=== PATIENT | female | born 1960 | race African-American/Black ===

== ENCOUNTER 2018-01-05 05:48 | Day surgery (SDC) | payer OTHER ==
--- NOTE | 2018-01-04 02:29 | HP ---
SHORT STAY HISTORY AND PHYSICAL DATE OF ADMISSION: 01/05/2018 HISTORY OF PRESENT ILLNESS: Freddy Noel is a 57-year-old female referred here for a colonoscopy f or colon cancer screening. The patient also had fecal immunochemical testing that came back positive . Her bowel movements are regular. No rectal bleeding. Of note, she has no family history of colon cancer. ALLERGIES: CELEBREX. SOCIAL HISTORY: The patient does not smoke or drink alcohol. MEDICAL ILLNESSES: 1. Hypertension. 2. Hypothyroidism. 3. Hyperlipidemia. 4. Obesity. 5. Appendectomy. 6. Tubal ligation. PHYSICAL EXAMINATION: VITAL SIGNS: Pulse is 70, blood pressure 130/70. HEENT: Conjunctivae clear. CARDIOVASCULAR: First and second heart sounds normal. LUNGS: Clear to auscultation. ABDOMEN: Soft to palpate. No organomegaly. No tenderness. No masses. ADMITTING DIAGNOSIS: A 57-year-old female with positive fecal test comes in for a colonoscopy for co alvino cancer screening.
[2018-01-04 13:08] VITALS: BMI 33.7
--- NOTE | 2018-01-05 09:36 | OP ---
DATE OF PROCEDURE: 01/05/2018 SURGEON: Reyna Salazar M.D. OPERATIVE PROCEDURE: Colonoscopy with polypectomy. PREOPERATIVE DIAGNOSIS: A 57-year-old female undergoing colonoscopy for colon cance r screening. POSTOPERATIVE DIAGNOSES: 1. Sessile ascending colon polyp, status post snare cautery with good hemostasis. 2. Large pedunculated polyp sigmoid colon, status post snare cautery with good hemostasis. 3. Hemorrhoids. PROCEDURE IN DETAIL: The patient was placed on her left lateral position and was given sedation by [facility]. A rectal exam was done before the scope was advanced into the rectum. No lesi on felt on rectal exam. A [employer]ax video colonoscope was introduced into the rectum, into the cecum. The prep was good. The mucosa appears normal throughout the colon with normal vascular pattern. The appendiceal orifice and ileocecal valve, cecum, no pathology seen. A sessile ascending colon polyp was removed with snare cautery with good hemostasis. The hepatic flexure, transverse colon, splenic flexure, and descending colon, no pathology. A large pedunculated polyp sigmoid colon area removed w ith cautery with good hemostasis. Retroflexion of scope in the rectum revealed hemorrhoids. DISCHARGE PLANNING: This is a 57-year-old female who came in for colonoscopy for co alvino cancer screening. She underwent a colonoscopy with polypectomy x2. DISCHARGE RECOMMENDATIONS: 1. The patient was advised to call me if she develops abdominal pain or hematochezia. 2. In the absence of any of her symptoms she is to come back to me in 2 weeks. 3. Will make recommendations for follow up colonoscopy after the biopsy report returns.
[2018-01-05] MEDS ORDERED: Lidocaine 1% PF 5 ML VIAL ONE (14:38)
[2018-01-05] MEDS ORDERED: PROPOFOL 200 MG/20 ML VIAL ONE (14:38)
== END 2018-01-05 09:34 | disposition home or self-care (01) ==
LOC: SDC 05:48
PROVIDERS: ATTEND Internal Medicine Gastroenterology
PROC: 0D5N8ZZ Destruction of Sigmoid Colon, Via Natural or Artificial Opening Endoscopic (ICD-10-PCS; principal; 2018-01-05)
PROC: 0DBK8ZX Excision of Ascending Colon, Via Natural or Artificial Opening Endoscopic, Diagnostic (ICD-10-PCS; principal; 2018-01-05)
DX: D12.2 Benign neoplasm of ascending colon (principal); D12.5 Benign neoplasm of sigmoid colon; K64.9 Unspecified hemorrhoids; I10 Essential (primary) hypertension; E03.9 Hypothyroidism, unspecified; E78.5 Hyperlipidemia, unspecified; E66.9 Obesity, unspecified; Z68.33 Body mass index [BMI] 33.0-33.9, adult; Z79.899 Other long term (current) drug therapy; Z91.048 Other nonmedicinal substance allergy status
CPT/HCPCS: 88305; J2001; J2704

== ENCOUNTER 2021-02-20 07:22 | Outpatient (CLI) | payer OTHER | END 2021-02-20 07:23 | disposition home or self-care (01) | LOC: BICULT 07:22 | PROVIDERS: ATTEND Nurse Practitioner Family | DX: N93.8 Other specified abnormal uterine and vaginal bleeding (principal); D25.9 Leiomyoma of uterus, unspecified | CPT/HCPCS: 76856; 93976 ==

== ENCOUNTER 2021-08-21 14:41 | Inpatient (IN) | payer OTHER ==
[~2021-08-21 14:41] MED LIST: ISOVUE-370 76%-LOCM 1 ML ONE
[2021-08-21 15:28] LABS: #Basophils 0.1 thou/uL (0.0-0.2); #Lymphocytes 2.5 thou/uL (1.20-3.40); #Monocytes 0.8 thou/uL (0.11-0.59); #Neutrophils 4.9 thou/uL (1.40-6.50); %Basophils 0.7 % (0.0-1.0); %Eosinophils 0.4 % (0.0-10.0); %Lymphocytes 30.4 % (21.0-51.0); %Neutrophils 58.6 % (42.0-75.0); Hemoglobin 11.8 g/dL (12.0-16.0); Mean Corpuscular HGB CONC 32.6 g/dL (32.0-36.0); Mean Corpuscular Hemoglobin 25.8 pg (27.0-31.0); Mean Corpuscular Volume 79.1 fL (78.0-98.0); Mean Platelet Volume 7.7 fL (7.4-10.4); Platelet Count 316 thou/uL (130-400); RBC Distribution Width 14.2 % (11.5-14.5); Red Blood Cell (RBC) Count 4.59 mill/uL (4.20-5.40); White Blood Cell (WBC) Count 8.3 thou/uL (4.8-10.8)
[2021-08-21 15:49] LABS: ALT (SGPT) 90 U/L (8-55); AST (SGOT) 50 U/L (5-34); Albumin 3.9 g/dL (3.4-4.8); Alkaline Phosphatase 105 U/L (40-110); Anion Gap 14 mmol/L (10-20); BUN (Urea Nitrogen) 13 mg/dL (9.8-20.1); Bilirubin, Total 0.6 mg/dL (0.2-1.2); Calc. Creatinine Clearance 0 mL/min (70-130); Calcium 11.6 mg/dL (7.8-10.44); Carbon Dioxide 25 mmol/L (23-31); Chloride 104 mmol/L (98-107); Globulin 3.2 g/dL (2.4-3.5); Glucose 114 mg/dL (80-115); Potassium 3.4 mmol/L (3.5-5.1); Protein, Total 7.1 g/dL (5.8-8.1); Sodium 140 mmol/L (136-145)
[2021-08-21] MEDS ORDERED: Ondansetron PF 4 MG/2 ML Vial IVP PRN (18:39)
[2021-08-21] MEDS ORDERED: Acetaminophen 650 MG Suppository PR PRN (18:39)
[2021-08-21] MEDS ORDERED: Ondansetron ODT 4 MG TAB PO PRN (18:39)
[2021-08-21] MEDS ORDERED: Senokot S 8.6-50 MG TAB PO PRN (18:39)
[2021-08-21] MEDS ORDERED: Acetaminophen 325 MG TAB PO PRN (18:39)
[2021-08-21 18:40] LABS: INR-International Normal Ratio 1.1; PTT 29.2 sec (22.9-36.1); Prothrombin Time 14.7 sec (12.0-14.7)
[2021-08-21 18:46] LABS: Phosphorus 2.7 mg/dL (2.3-4.7)
[2021-08-21 18:47] LABS: Magnesium 2.1 mg/dL (1.6-2.6)
[2021-08-21] MEDS ORDERED: Potassium Chloride 20 MEQ TAB PO SCH (19:00)
[2021-08-21 20:32] LABS: SARS-CoV-2 NAA Rapid Test Not Detected (NotDetected)
[2021-08-21] MEDS ORDERED: Electrolyte Replacement Protocol 1 EACH FS SCH (21:00)
[2021-08-21] MEDS ORDERED: Amlodipine 10 MG TAB PO SCH (21:00)
[2021-08-21 22:27] LABS: Bilirubin Negative (Negative); Blood, Urine Negative (Negative); Clarity Clear (Clear); Glucose, Urine (Dipstick) Normal (Negative); Ketone, Urine 20 mg/dL (Negative); Leukocyte Negative Leu/uL (Negative); Nitrite Negative (Negative); Protein, Urine (Dipstick) 30 mg/dL (Neg-Trace); Squamous Epithelial 0-3 HPF (0-3); Urobilinogen Normal mg/dL (Less than 2); WBC/HPF 0-3 HPF (0-3)
[2021-08-21 22:33] LABS: Specific Gravity, Urine 1.055 (1.002-1.036)
[2021-08-21 22:34] LABS: Bacteria/HPF Rare-Few HPF (None Seen); RBC/HPF 0-3 HPF (0-3)
[2021-08-21 23:31] VITALS: BMI 33.3
[2021-08-22 05:01] LABS: #Lymphocytes 2.6 thou/uL (1.20-3.40); #Neutrophils 4.9 thou/uL (1.40-6.50); %Basophils 0.4 % (0.0-1.0); %Eosinophils 0.3 % (0.0-10.0); %Lymphocytes 30.8 % (21.0-51.0); %Monocytes 11.4 % (0.0-10.0); %Neutrophils 57.1 % (42.0-75.0); Hemoglobin 10.9 g/dL (12.0-16.0); Mean Corpuscular HGB CONC 31.3 g/dL (32.0-36.0); Mean Corpuscular Hemoglobin 24.8 pg (27.0-31.0); Mean Corpuscular Volume 79.2 fL (78.0-98.0); Mean Platelet Volume 8.2 fL (7.4-10.4); Platelet Count 270 thou/uL (130-400); RBC Distribution Width 14.3 % (11.5-14.5); Red Blood Cell (RBC) Count 4.38 mill/uL (4.20-5.40); White Blood Cell (WBC) Count 8.6 thou/uL (4.8-10.8)
[2021-08-22 05:22] LABS: Anion Gap 13 mmol/L (10-20); BUN (Urea Nitrogen) 11 mg/dL (9.8-20.1); Calc. Creatinine Clearance 140 mL/min (70-130); Calcium 10.7 mg/dL (7.8-10.44); Carbon Dioxide 26 mmol/L (23-31); Cardiac Risk 4.9 (Less than 4.5); Chloride 104 mmol/L (98-107); Cholesterol 205 mg/dl (< 200 Desired); Glucose 98 mg/dL (80-115); HDL Cholesterol 42 mg/dL (>60 Neg Risk); LDL Cholesterol, Calculated 148 mg/dL; Potassium 3.1 mmol/L (3.5-5.1); Sodium 140 mmol/L (136-145); Triglycerides 77 mg/dL (Less than 150)
[2021-08-22 05:40] LABS: Free T4 (Free Thyroxine) 0.92 ng/dL (0.70-1.48); Thyroid Stimulating Hormone 2.7318 uIU/mL (0.35-4.94)
[2021-08-22] MEDS ORDERED: ceFAZolin 2 GM/Dextrose 50 ML 2 GM in Premix Bag 1 BAG IVPB SCH ×2 (07:00→17:00)
[2021-08-22] MEDS ORDERED: Potassium Chloride 20 MEQ TAB PO SCH (07:00)
[2021-08-22] MEDS ORDERED: Famotidine/PF 20 mg/2ml Vial ONE (07:14)
[2021-08-22] MEDS ORDERED: Fentanyl 100 MCG/2 ML VIAL ONE ×3 (07:14→12:12)
[2021-08-22] MEDS ORDERED: Sodium Chloride 0.9% 1,000 ML IV SCH (07:30)
[2021-08-22] MEDS ORDERED: Nitroglycerin 50 MG/250 ML BOT 0 ML ONE (07:34)
[2021-08-22] MEDS ORDERED: SUGAMMADEX SODIUM 200 MG/2 ML VIAL ONE (07:34)
[2021-08-22] MEDS ORDERED: Promethazine HCl 25 MG/ML VIAL IVPB PRN (08:04)
[2021-08-22] MEDS ORDERED: Meperidine HCl/PF 25 MG/ML VIAL SLOW IVP PRN (08:04)
[2021-08-22] MEDS ORDERED: HYDROmorphone 2 MG/ML VIAL SLOW IVP PRN (08:04)
[2021-08-22] MEDS ORDERED: Promethazine HCl 25 MG/ML VIAL IM PRN (08:04)
[2021-08-22] MEDS ORDERED: ceFAZolin 2 GM/DEX 5% 100 ML BAG ONE ×2 (08:41→08:55)
[2021-08-22] MEDS ORDERED: Triamterene/Hydrochlorothiazide 37.5 mg/25 mg Tablet PO SCH (09:00)
[2021-08-22] MEDS ORDERED: Bupivacaine PF 0.5% 30 ML VIAL ONE (09:04)
[2021-08-22] MEDS ORDERED: Rocuronium Bromide 10 MG/ML (10ML VIAL) ONE (09:15)
[2021-08-22] MEDS ORDERED: PROPOFOL 200 MG/20 ML VIAL ONE (09:15)
[2021-08-22] MEDS ORDERED: Lidocaine 1% PF 5 ML VIAL ONE (09:15)
[2021-08-22] MEDS ORDERED: Ondansetron PF 4 MG/2 ML Vial ONE (09:15)
[2021-08-22] MEDS ORDERED: Dexamethasone 20 MG/5 ML VIAL ONE (09:15)
[2021-08-22] MEDS ORDERED: Midazolam HCl 2 mg/2 ml Vial ONE (11:27)
[2021-08-22] MEDS ORDERED: HYDROmorphone 0.5 MG/0.5 ML SYRINGE ONE (12:37)
[2021-08-22] MEDS ORDERED: Ondansetron PF 4 MG/2 ML Vial IVP PRN (14:16)
[2021-08-22] MEDS ORDERED: traMADol HCl 50 MG TAB PO PRN (14:16)
[2021-08-22] MEDS ORDERED: Acetaminophen 325 MG TAB PO PRN (14:16)
[2021-08-22] MEDS ORDERED: Acetaminophen 650 MG Suppository PR PRN (14:16)
[2021-08-22] MEDS ORDERED: Milk Of Magnesia 30 ML UDCUP PO PRN (14:16)
[2021-08-22] MEDS ORDERED: Mineral Oil ENEMA PR PRN (14:16)
[2021-08-22] MEDS ORDERED: Bisacodyl 10 MG SUPP PR PRN (14:16)
[2021-08-22] MEDS ORDERED: ceFAZolin Sodium/D5W 2 GM in Premix Bag 1 BAG IVPB SCH (14:30)
[2021-08-22] MEDS: Morphine 4 MG/ML VIAL SLOW IVP PRN ×3 (15:36→23:34)
[2021-08-22] MEDS: ceFAZolin Sodium/D5W 2 GM in Premix Bag 1 BAG IVPB SCH ×2 (15:37→23:36)
[2021-08-22] MEDS: Multivit, Therapeutic 1 TAB PO SCH (16:41)
[2021-08-22] MEDS: Methimazole 10 MG TAB PO SCH (16:41)
[2021-08-22] MEDS: Potassium Chloride 10 MEQ TAB PO SCH (16:41)
[2021-08-22] MEDS: D5 0.9% NS w/ 20 mEq KCl 1,000 ML IV SCH (17:24)
[2021-08-22] MEDS ORDERED: Metoprolol Tartrate 5 MG/5 ML VIAL IVP PRN (17:50)
[2021-08-22] MEDS: Amlodipine 5 MG TAB PO SCH (20:46)
[2021-08-22] MEDS: traMADol HCl 50 MG TAB PO PRN (20:48)
[2021-08-22] MEDS: Famotidine 20 MG TAB PO SCH (20:48)
[2021-08-23] MEDS ORDERED: Metoprolol Tartrate 5 MG/5 ML VIAL IVP SCH (00:12)
[2021-08-23] MEDS: D5 0.9% NS w/ 20 mEq KCl 1,000 ML IV SCH ×2 (00:25→04:03)
[2021-08-23] MEDS: Morphine 4 MG/ML VIAL SLOW IVP PRN (04:02)
[2021-08-23 04:47] LABS: #Monocytes 1.4 thou/uL (0.11-0.59); #Neutrophils 10.2 thou/uL (1.40-6.50); %Basophils 0.1 % (0.0-1.0); %Eosinophils 0.1 % (0.0-10.0); %Lymphocytes 14.8 % (21.0-51.0); %Monocytes 10.5 % (0.0-10.0); %Neutrophils 74.5 % (42.0-75.0); Hemoglobin 10.4 g/dL (12.0-16.0); Mean Corpuscular HGB CONC 31.2 g/dL (32.0-36.0); Mean Corpuscular Hemoglobin 25.3 pg (27.0-31.0); Platelet Count 265 thou/uL (130-400); RBC Distribution Width 14.6 % (11.5-14.5); Red Blood Cell (RBC) Count 4.12 mill/uL (4.20-5.40); White Blood Cell (WBC) Count 13.6 thou/uL (4.8-10.8)
[2021-08-23 05:05] LABS: Anion Gap 9 mmol/L (10-20); BUN (Urea Nitrogen) 8 mg/dL (9.8-20.1); Calc. Creatinine Clearance 129 mL/min (70-130); Calcium 9.2 mg/dL (7.8-10.44); Carbon Dioxide 26 mmol/L (23-31); Chloride 111 mmol/L (98-107); Glucose 138 mg/dL (80-115); Potassium 4.3 mmol/L (3.5-5.1); Sodium 142 mmol/L (136-145)
[2021-08-23] MEDS: Potassium Chloride 10 MEQ TAB PO SCH (09:14)
[2021-08-23] MEDS: ceFAZolin Sodium/D5W 2 GM in Premix Bag 1 BAG IVPB SCH (09:14)
[2021-08-23] MEDS: Methimazole 10 MG TAB PO SCH (09:15)
[2021-08-23] MEDS: Famotidine 20 MG TAB PO SCH ×2 (09:15→20:33)
[2021-08-23] MEDS: Multivit, Therapeutic 1 TAB PO SCH (09:15)
[2021-08-23] MEDS: Amlodipine 5 MG TAB PO SCH ×2 (09:18→20:28)
[2021-08-23] MEDS: traMADol HCl 50 MG TAB PO PRN ×2 (10:35→20:40)
[2021-08-24] MEDS: Methimazole 10 MG TAB PO SCH (08:06)
[2021-08-24] MEDS: Potassium Chloride 10 MEQ TAB PO SCH (09:21)
[2021-08-24] MEDS: Amlodipine 5 MG TAB PO SCH (09:22)
[2021-08-24] MEDS: Famotidine 20 MG TAB PO SCH ×2 (09:22→20:02)
[2021-08-24] MEDS: Multivit, Therapeutic 1 TAB PO SCH (09:22)
[2021-08-24 11:15] LABS: #Lymphocytes 1.5 thou/uL (1.20-3.40); #Monocytes 0.9 thou/uL (0.11-0.59); #Neutrophils 11.2 thou/uL (1.40-6.50); %Basophils 0.2 % (0.0-1.0); %Eosinophils 0.1 % (0.0-10.0); %Lymphocytes 10.7 % (21.0-51.0); %Monocytes 6.9 % (0.0-10.0); %Neutrophils 82.1 % (42.0-75.0); Hemoglobin 10.4 g/dL (12.0-16.0); Mean Corpuscular HGB CONC 31.5 g/dL (32.0-36.0); Mean Corpuscular Hemoglobin 25.4 pg (27.0-31.0); Mean Corpuscular Volume 80.7 fL (78.0-98.0); Mean Platelet Volume 7.7 fL (7.4-10.4); Platelet Count 244 thou/uL (130-400); RBC Distribution Width 14.5 % (11.5-14.5); Red Blood Cell (RBC) Count 4.11 mill/uL (4.20-5.40); White Blood Cell (WBC) Count 13.7 thou/uL (4.8-10.8)
[2021-08-24 11:49] LABS: Anion Gap 11 mmol/L (10-20); BUN (Urea Nitrogen) 10 mg/dL (9.8-20.1); Calc. Creatinine Clearance 132 mL/min (70-130); Calcium 9.4 mg/dL (7.8-10.44); Carbon Dioxide 27 mmol/L (23-31); Chloride 106 mmol/L (98-107); Glucose 103 mg/dL (80-115); Potassium 3.7 mmol/L (3.5-5.1); Sodium 140 mmol/L (136-145)
[2021-08-24] MEDS: traMADol HCl 50 MG TAB PO PRN (14:01)
[2021-08-24] MEDS: Metoprolol Tartrate 25 MG TAB PO SCH (20:02)
[2021-08-24 23:12] LABS: Anion Gap 12 mmol/L (10-20); BUN (Urea Nitrogen) 11 mg/dL (9.8-20.1); Calc. Creatinine Clearance 122 mL/min (70-130); Calcium 9.4 mg/dL (7.8-10.44); Carbon Dioxide 28 mmol/L (23-31); Chloride 105 mmol/L (98-107); Glucose 109 mg/dL (80-115); Potassium 3.6 mmol/L (3.5-5.1); Sodium 141 mmol/L (136-145)
[2021-08-24 23:14] LABS: Phosphorus 1.7 mg/dL (2.3-4.7)
[2021-08-24] MEDS ORDERED: Metoprolol Tartrate 25 MG TAB PO SCH (23:23)
[2021-08-24] MEDS ORDERED: PHOS-NAK 1 PKT PACK PO SCH (23:30)
[2021-08-25 04:50] LABS: #Eosinphils 0.1 thou/uL (0.0-0.7); #Lymphocytes 1.9 thou/uL (1.20-3.40); #Monocytes 0.9 thou/uL (0.11-0.59); #Neutrophils 8.3 thou/uL (1.40-6.50); %Basophils 0.2 % (0.0-1.0); %Lymphocytes 16.7 % (21.0-51.0); %Monocytes 8.1 % (0.0-10.0); Hemoglobin 10.7 g/dL (12.0-16.0); Mean Corpuscular HGB CONC 31.5 g/dL (32.0-36.0); Mean Corpuscular Hemoglobin 25.2 pg (27.0-31.0); Mean Corpuscular Volume 79.9 fL (78.0-98.0); Mean Platelet Volume 7.9 fL (7.4-10.4); Platelet Count 236 thou/uL (130-400); RBC Distribution Width 14.5 % (11.5-14.5); Red Blood Cell (RBC) Count 4.24 mill/uL (4.20-5.40); White Blood Cell (WBC) Count 11.3 thou/uL (4.8-10.8)
[2021-08-25 05:13] LABS: Anion Gap 11 mmol/L (10-20); BUN (Urea Nitrogen) 10 mg/dL (9.8-20.1); Calc. Creatinine Clearance 138 mL/min (70-130); Calcium 8.9 mg/dL (7.8-10.44); Carbon Dioxide 25 mmol/L (23-31); Chloride 108 mmol/L (98-107); Glucose 96 mg/dL (80-115); Potassium 3.7 mmol/L (3.5-5.1); Sodium 140 mmol/L (136-145)
[2021-08-25] MEDS ORDERED: Magnesium 2 GM/50 ML 2 GM in Premix Bag 1 BAG IVPB SCH (07:00)
[2021-08-25] MEDS: Potassium Chloride 10 MEQ TAB PO SCH (08:34)
[2021-08-25] MEDS: Methimazole 10 MG TAB PO SCH (08:34)
[2021-08-25] MEDS: Multivit, Therapeutic 1 TAB PO SCH (08:35)
[2021-08-25] MEDS: Famotidine 20 MG TAB PO SCH ×2 (08:35→20:19)
[2021-08-25] MEDS: Metoprolol Tartrate 25 MG TAB PO SCH ×2 (08:35→20:19)
[2021-08-25] MEDS ORDERED: Metoprolol Tartrate 25 MG TAB PO SCH (15:00)
[2021-08-25 15:06] LABS: Free T4 (Free Thyroxine) 0.78 ng/dL (0.70-1.48); Thyroid Stimulating Hormone 3.6475 uIU/mL (0.35-4.94)
[2021-08-26] MEDS: Multivit, Therapeutic 1 TAB PO SCH (09:24)
[2021-08-26] MEDS: Metoprolol Tartrate 25 MG TAB PO SCH (09:24)
[2021-08-26] MEDS: Potassium Chloride 10 MEQ TAB PO SCH (09:25)
[2021-08-26] MEDS: Famotidine 20 MG TAB PO SCH (09:25)
[2021-08-26] MEDS: Methimazole 10 MG TAB PO SCH (11:35)
[2021-08-26 11:40] VITALS: BP 111/71; TEMP 98.2
== END 2021-08-26 14:00 | disposition home or self-care (01) | DRG 270 ==
LOC: ERS 14:41 → 2NO 18:04
PROVIDERS: ADMIT Internal Medicine; ATTEND Internal Medicine
PROC: 0W9D00Z Drainage of Pericardial Cavity with Drainage Device, Open Approach (ICD-10-PCS; principal; 2021-08-22)
PROC: 02BN0ZX Excision of Pericardium, Open Approach, Diagnostic (ICD-10-PCS; 2021-08-22)
PROC: 0WBC0ZX Excision of Mediastinum, Open Approach, Diagnostic (ICD-10-PCS; 2021-08-22)
PROC: 0GBH0ZZ Excision of Right Thyroid Gland Lobe, Open Approach (ICD-10-PCS; 2021-08-22)
DX: I31.3 Pericardial effusion (noninflammatory) (principal); J96.01 Acute respiratory failure with hypoxia; C34.12 Malignant neoplasm of upper lobe, left bronchus or lung; I47.1 Supraventricular tachycardia; Z20.822 Contact with and (suspected) exposure to COVID-19; I10 Essential (primary) hypertension; E83.52 Hypercalcemia; E05.90 Thyrotoxicosis, unspecified without thyrotoxic crisis or storm; K76.9 Liver disease, unspecified; E87.6 Hypokalemia; I07.1 Rheumatic tricuspid insufficiency; E66.01 Morbid (severe) obesity due to excess calories; E07.89 Other specified disorders of thyroid; N63.0 Unspecified lump in unspecified breast; R74.01 Elevation of levels of liver transaminase levels; E78.5 Hyperlipidemia, unspecified; Z88.8 Allergy status to other drugs, medicaments and biological substances; Z79.899 Other long term (current) drug therapy; Z90.49 Acquired absence of other specified parts of digestive tract; Z98.51 Tubal ligation status; Z68.32 Body mass index [BMI] 32.0-32.9, adult
CPT/HCPCS: 36415; 71045; 71275; 80048; 80053; 80061; 83735; 84100; 84439; 84443; 84481; 84484; 85025; 85379; 85610; 85730; 86850; 86900; 86901; 87070; 87205; 87804; 88112; 88184; 88305; 88307; 88341; 88342; 93005; 93010; 93306; 94760; C1713; C1776; J1100; J1170; J2250; J2270; J2405; J2704; J3010; J3475; J3480; Q9966; S0020; S0028; U0002

== ENCOUNTER 2021-09-08 13:05 | Outpatient (CLI) | payer OTHER | END 2021-09-08 13:06 | disposition home or self-care (01) | LOC: BICRAD 13:05 | PROVIDERS: ATTEND Thoracic Surgery (Cardiothoracic Vascular Surgery) | DX: I31.3 Pericardial effusion (noninflammatory) (principal); J98.59 Other diseases of mediastinum, not elsewhere classified | CPT/HCPCS: 71046 ==

== ENCOUNTER 2021-09-16 08:36 | Emergency (ER) | payer OTHER | END 2021-09-16 11:00 | disposition home or self-care (01) | LOC: ERS 08:36 | DX: I95.9 Hypotension, unspecified (principal); I10 Essential (primary) hypertension; E78.5 Hyperlipidemia, unspecified | CPT/HCPCS: 99284 ==

== ENCOUNTER 2021-09-25 12:30 | Outpatient (CLI) | payer OTHER | END 2021-09-25 12:31 | disposition home or self-care (01) | LOC: PET 12:30 | PROVIDERS: ATTEND Internal Medicine Hematology & Oncology | DX: C34.12 Malignant neoplasm of upper lobe, left bronchus or lung (principal); R42 Dizziness and giddiness; R91.8 Other nonspecific abnormal finding of lung field; I31.3 Pericardial effusion (noninflammatory); N89.8 Other specified noninflammatory disorders of vagina | CPT/HCPCS: 78815; A9552 ==

== ENCOUNTER 2021-09-25 17:19 | Outpatient (CLI) | payer OTHER ==
[2021-09-25 22:12] LABS: SARS-CoV-2 NAA Rapid Test Not Detected (NotDetected)
== END 2021-09-25 17:20 | disposition home or self-care (01) ==
LOC: LABBT 17:19
PROVIDERS: ATTEND Thoracic Surgery (Cardiothoracic Vascular Surgery)
DX: Z01.812 Encounter for preprocedural laboratory examination (principal); Z20.822 Contact with and (suspected) exposure to COVID-19
CPT/HCPCS: U0002

== ENCOUNTER 2021-09-26 05:42 | Day surgery (SDC) | payer OTHER ==
[2021-09-26] MEDS ORDERED: Midazolam HCl 2 mg/2 ml Vial ONE ×2 (06:21→07:11)
[2021-09-26] MEDS ORDERED: PROPOFOL 60 ML ONE (06:21)
[2021-09-26] MEDS ORDERED: Fentanyl 100 MCG/2 ML VIAL ONE (06:21)
[2021-09-26] MEDS ORDERED: Famotidine/PF 20 mg/2ml Vial ONE (06:22)
[2021-09-26] MEDS ORDERED: Lidocaine 1% (PF) 30 ML VIAL ONE (06:31)
[2021-09-26] MEDS ORDERED: Lidocaine 1% MPF 2 ML VIAL ONE (07:01)
[2021-09-26] MEDS ORDERED: ceFAZolin 2 GM/Dextrose 50 ML IVPB ONE (07:19)
[2021-09-26] MEDS ORDERED: Metoclopramide HCl 10 MG/2 ML VIAL ONE (07:25)
[2021-09-26] MEDS ORDERED: Lidocaine 1% PF 5 ML VIAL ONE (07:25)
[2021-09-26] MEDS ORDERED: Ondansetron PF 4 MG/2 ML Vial ONE (07:25)
[2021-09-26] MEDS ORDERED: PROPOFOL 200 MG/20 ML VIAL ONE (07:25)
[2021-09-26] MEDS ORDERED: Ketorolac Tromethamine 30 MG/ML VIAL ONE (07:25)
[2021-09-26] MEDS ORDERED: Dexamethasone 20 MG/5 ML VIAL ONE (07:25)
== END 2021-09-26 09:04 | disposition home or self-care (01) ==
LOC: SDC 05:42
PROVIDERS: ATTEND Thoracic Surgery (Cardiothoracic Vascular Surgery)
PROC: 0JH60WZ Insertion of Totally Implantable Vascular Access Device into Chest Subcutaneous Tissue and Fascia, Open Approach (ICD-10-PCS; principal; 2021-09-26)
PROC: 02HV33Z Insertion of Infusion Device into Superior Vena Cava, Percutaneous Approach (ICD-10-PCS; principal; 2021-09-26)
DX: I31.3 Pericardial effusion (noninflammatory) (principal); J98.59 Other diseases of mediastinum, not elsewhere classified; Z79.899 Other long term (current) drug therapy; Z88.6 Allergy status to analgesic agent; Z91.048 Other nonmedicinal substance allergy status
CPT/HCPCS: C1788; J0690; J1100; J1642; J1885; J2001; J2250; J2405; J2704; J2765; J3010; S0028

== ENCOUNTER 2021-10-08 16:18 | Emergency (ER) | payer OTHER ==
[2021-10-08 17:12] LABS: #Basophils 0.1 thou/uL (0.0-0.2); #Eosinphils 0.3 thou/uL (0.0-0.7); #Lymphocytes 3.2 thou/uL (1.20-3.40); #Monocytes 1.2 thou/uL (0.11-0.59); #Neutrophils 4.7 thou/uL (1.40-6.50); %Basophils 1.2 % (0.0-1.0); %Eosinophils 2.8 % (0.0-10.0); %Lymphocytes 33.8 % (21.0-51.0); %Monocytes 12.3 % (0.0-10.0); %Neutrophils 49.9 % (42.0-75.0); Hemoglobin 12.7 g/dL (12.0-16.0); Mean Corpuscular HGB CONC 31.1 g/dL (32.0-36.0); Mean Corpuscular Hemoglobin 25.1 pg (27.0-31.0); Mean Corpuscular Volume 80.8 fL (78.0-98.0); Mean Platelet Volume 9.4 fL (7.4-10.4); Platelet Count 232 thou/uL (130-400); Red Blood Cell (RBC) Count 5.07 mill/uL (4.20-5.40); White Blood Cell (WBC) Count 9.4 thou/uL (4.8-10.8)
[2021-10-08 17:36] LABS: ALT (SGPT) 27 U/L (8-55); AST (SGOT) 33 U/L (5-34); Albumin 3.6 g/dL (3.4-4.8); Alkaline Phosphatase 87 U/L (40-110); Anion Gap 15 mmol/L (10-20); BUN (Urea Nitrogen) 6 mg/dL (9.8-20.1); Bilirubin, Total 0.5 mg/dL (0.2-1.2); Calc. Creatinine Clearance 0 mL/min (70-130); Calcium 8.4 mg/dL (7.8-10.44); Carbon Dioxide 24 mmol/L (23-31); Chloride 102 mmol/L (98-107); Globulin 4.1 g/dL (2.4-3.5); Glucose 97 mg/dL (80-115); Protein, Total 7.7 g/dL (5.8-8.1); Sodium 138 mmol/L (136-145)
[2021-10-08 17:40] LABS: Potassium 2.9 mmol/L (3.5-5.1)
[2021-10-08] MEDS ORDERED: Magnesium 2 GM/50 ML BAG (IN WATER) ONE (18:03)
[2021-10-08] MEDS ORDERED: Potassium Chloride 20 MEQ TAB ONE (18:08)
== END 2021-10-08 18:45 | disposition home or self-care (01) ==
LOC: ERS 16:18
DX: E87.6 Hypokalemia (principal); R94.31 Abnormal electrocardiogram [ECG] [EKG]; I10 Essential (primary) hypertension; E05.90 Thyrotoxicosis, unspecified without thyrotoxic crisis or storm; E78.5 Hyperlipidemia, unspecified; E78.00 Pure hypercholesterolemia, unspecified; Z85.118 Personal history of other malignant neoplasm of bronchus and lung
CPT/HCPCS: 80053; 84484; 85025; 93005; 96365; J3475

== ENCOUNTER 2021-10-14 18:57 | Inpatient (IN) | payer OTHER ==
[2021-10-14 19:55] LABS: Hemoglobin 12.4 g/dL (12.0-16.0); Mean Corpuscular HGB CONC 30.9 g/dL (32.0-36.0); Mean Corpuscular Hemoglobin 25.3 pg (27.0-31.0); Mean Corpuscular Volume 81.6 fL (78.0-98.0); Platelet Count 164 thou/uL (130-400); RBC Distribution Width 17.8 % (11.5-14.5); White Blood Cell (WBC) Count 3.2 thou/uL (4.8-10.8)
[2021-10-14 20:08] LABS: Bacteria/HPF None Seen HPF (None Seen); Bilirubin 1+ (Negative); Blood, Urine Negative (Negative); Clarity Turbid (Clear); Glucose, Urine (Dipstick) 30 mg/dL (Negative); Ketone, Urine Trace mg/dL (Negative); Leukocyte 25 Leu/uL (Negative); Nitrite Negative (Negative); Protein, Urine (Dipstick) 100 mg/dL (Neg-Trace); RBC/HPF 0-3 HPF (0-3); Specific Gravity, Urine 1.031 (1.002-1.036)
[2021-10-14 20:14] LABS: ALT (SGPT) 37 U/L (8-55); AST (SGOT) 41 U/L (5-34); Albumin 3.5 g/dL (3.4-4.8); Alkaline Phosphatase 77 U/L (40-110); Anion Gap 15 mmol/L (10-20); BUN (Urea Nitrogen) 9 mg/dL (9.8-20.1); Bilirubin, Total 0.6 mg/dL (0.2-1.2); Calc. Creatinine Clearance 0 mL/min (70-130); Calcium 8.1 mg/dL (7.8-10.44); Carbon Dioxide 22 mmol/L (23-31); Chloride 103 mmol/L (98-107); Globulin 3.5 g/dL (2.4-3.5); Glucose 116 mg/dL (80-115); Lipase 38 U/L (8-78); Sodium 137 mmol/L (136-145)
[2021-10-14 20:16] LABS: Anisocytosis SLIGHT = 6-15 cells (100X) (0-5/hpf); Burr Cells MODERATE= 6-15 cells (100X) (0-1/hpf); Eosinophils 3 % (0-10); Hypochromia SLIGHT = 6-15 cells (100X) (0-5/hpf); Lymphocytes 54 % (21-51); MDiff Complete? YES; Monocytes 2 % (0-10); Neutrophil 34 % (42-75); Ovalocytes SLIGHT = 2-5 cells (100X) (0-1/hpf); Platelet Morphology Comment Appears Adequate; Polychromasia SLIGHT = 2-3 cells (100X) (0-2/hpf); Reactive Lymphocytes 4 % (0-10)
[2021-10-14 20:17] LABS: Potassium 2.8 mmol/L (3.5-5.1)
[2021-10-14] MEDS ORDERED: Ondansetron PF 4 MG/2 ML Vial ONE (20:20)
[2021-10-14] MEDS ORDERED: Pot Chloride/Pot Bicarb/Cit Ac 25 mEq Effervescent Tablet ONE (20:38)
[2021-10-14] MEDS ORDERED: Ondansetron PF 4 MG/2 ML Vial IVP PRN (22:59)
[2021-10-14] MEDS ORDERED: Bisacodyl 10 MG SUPP PR PRN (22:59)
[2021-10-14] MEDS ORDERED: Guaifenesin DM 100-10/5 ML UDCUP PO PRN (22:59)
[2021-10-14] MEDS ORDERED: hydrALAZINE 20 MG/ML VIAL SLOW IVP PRN (23:00)
[2021-10-14] MEDS ORDERED: Morphine 4 MG/ML VIAL SLOW IVP PRN (23:05)
[2021-10-14 23:56] LABS: Magnesium 1.8 mg/dL (1.6-2.6)
[2021-10-14] MEDS ORDERED: Scopolamine 1.5 mg/72 hour Patch TD SCH (23:59)
[2021-10-15 00:12] VITALS: BMI 28.3
[2021-10-15] MEDS: Potassium Chloride 10 MEQ in Dextrose 5%-Lactated Ringers 1,000 ML IV SCH ×2 (00:58→11:16)
[2021-10-15] MEDS: cefTRIAXone\\ROCEPHIN 1 GM in Sodium Chloride 0.9% 100 ML IVPB SCH (01:58)
[2021-10-15 06:34] LABS: ALT (SGPT) 30 U/L (8-55); AST (SGOT) 35 U/L (5-34); Alkaline Phosphatase 64 U/L (40-110); Anion Gap 12 mmol/L (10-20); BUN (Urea Nitrogen) 5 mg/dL (9.8-20.1); Bilirubin, Total 0.5 mg/dL (0.2-1.2); Calc. Creatinine Clearance 143 mL/min (70-130); Calcium 7.7 mg/dL (7.8-10.44); Carbon Dioxide 25 mmol/L (23-31); Chloride 106 mmol/L (98-107); Globulin 2.9 g/dL (2.4-3.5); Glucose 112 mg/dL (80-115); Protein, Total 5.9 g/dL (5.8-8.1); Sodium 140 mmol/L (136-145)
[2021-10-15 06:58] LABS: Band 6 % (5-11); Eosinophils 5 % (0-10); Hemoglobin 11.5 g/dL (12.0-16.0); Lymphocytes 57 % (21-51); MDiff Complete? YES; Mean Corpuscular HGB CONC 31.3 g/dL (32.0-36.0); Mean Corpuscular Hemoglobin 25.8 pg (27.0-31.0); Mean Corpuscular Volume 82.5 fL (78.0-98.0); Mean Platelet Volume 10.6 fL (7.4-10.4); Monocytes 1 % (0-10); Neutrophil 31 % (42-75); Platelet Count 141 thou/uL (130-400); RBC Distribution Width 17.9 % (11.5-14.5); Red Blood Cell (RBC) Count 4.44 mill/uL (4.20-5.40); White Blood Cell (WBC) Count 2.2 thou/uL (4.8-10.8)
[2021-10-15] MEDS: Famotidine/PF 20 mg/2ml Vial SLOW IVP SCH ×2 (08:14→21:06)
[2021-10-15] MEDS: Enoxaparin Sodium 40 MG/0.4 ML SYRINGE SC SCH (08:15)
[2021-10-15] MEDS ORDERED: Potassium Chloride 40 MEQ in Premix Bag 1 BAG IVPB SCH (09:00)
[2021-10-15 11:14] LABS: SARS-CoV-2 PCR by NAA Not Detected (NotDetected)
[2021-10-15] MEDS: Lactated Ringer's 1,000 ML IV SCH (18:45)
[2021-10-16] MEDS: cefTRIAXone\\ROCEPHIN 1 GM in Sodium Chloride 0.9% 100 ML IVPB SCH (00:10)
[2021-10-16] MEDS ORDERED: Lidocaine 1% PF 5 ML VIAL ONE (08:10)
[2021-10-16] MEDS ORDERED: PROPOFOL 200 MG/20 ML VIAL ONE (08:10)
[2021-10-16] MEDS ORDERED: Promethazine HCl 25 MG/ML VIAL IM PRN (08:32)
[2021-10-16] MEDS ORDERED: Promethazine HCl 25 MG/ML VIAL IVPB PRN (08:32)
[2021-10-16] MEDS ORDERED: Ondansetron HCl/PF 4 MG/2 ML Vial IVP PRN (08:32)
[2021-10-16] MEDS ORDERED: Pantoprazole 40 MG VIAL IVP SCH (09:00)
[2021-10-16] MEDS: Enoxaparin Sodium 40 MG/0.4 ML SYRINGE SC SCH ×2 (09:17→09:24)
[2021-10-16] MEDS: Lactated Ringer's 1,000 ML IV SCH (09:17)
[2021-10-16 17:09] VITALS: BP 146/84; TEMP 97.7
== END 2021-10-16 17:45 | disposition home or self-care (01) | DRG 392 ==
LOC: ERS 18:57 → T4-A 21:53
PROVIDERS: ADMIT Internal Medicine; ATTEND Internal Medicine
PROC: 0DB68ZX Excision of Stomach, Via Natural or Artificial Opening Endoscopic, Diagnostic (ICD-10-PCS; principal; 2021-10-16)
PROC: 0D718ZZ Dilation of Upper Esophagus, Via Natural or Artificial Opening Endoscopic (ICD-10-PCS; 2021-10-16)
DX: R13.10 Dysphagia, unspecified (principal); N39.0 Urinary tract infection, site not specified; C34.12 Malignant neoplasm of upper lobe, left bronchus or lung; I10 Essential (primary) hypertension; E78.5 Hyperlipidemia, unspecified; E03.9 Hypothyroidism, unspecified; E87.6 Hypokalemia; C73 Malignant neoplasm of thyroid gland; K29.70 Gastritis, unspecified, without bleeding; Z20.822 Contact with and (suspected) exposure to COVID-19; E78.00 Pure hypercholesterolemia, unspecified; E87.5 Hyperkalemia; Z90.49 Acquired absence of other specified parts of digestive tract; Z98.51 Tubal ligation status; Z88.8 Allergy status to other drugs, medicaments and biological substances; Z79.899 Other long term (current) drug therapy; Z79.82 Long term (current) use of aspirin
CPT/HCPCS: 36415; 80053; 81003; 81015; 83690; 83735; 84443; 85025; 87086; 88305; 88342; 93005; C9113; J0696; J1650; J2270; J2405; J2704; J3480; J3490; J7120; S0028; U0003; U0005

== ENCOUNTER 2021-12-25 13:28 | Outpatient (CLI) | payer OTHER | END 2021-12-25 13:29 | disposition home or self-care (01) | LOC: PET 13:28 | PROVIDERS: ATTEND Internal Medicine Hematology & Oncology | DX: C34.12 Malignant neoplasm of upper lobe, left bronchus or lung (principal); C79.31 Secondary malignant neoplasm of brain | CPT/HCPCS: 70553 ==

== ENCOUNTER 2022-03-06 07:45 | Day surgery (SDC) | payer OTHER ==
[2022-03-06] MEDS ORDERED: Acetaminophen 500 MG TAB ONE (08:12)
[2022-03-06] MEDS ORDERED: diphenhydrAMINE 25 MG CAP ONE (08:12)
[2022-03-06] MEDS ORDERED: SODIUM CHLORIDE 0.9% IV SCH (11:15)
[2022-03-06] MEDS ORDERED: POTASSIUM CHLORIDE IV SCH (11:15)
[2022-03-06] MEDS ORDERED: MAGNESIUM SULFATE IV SCH (11:15)
[2022-03-06] MEDS ORDERED: SODIUM CHLORIDE 0.9% IVPB SCH (11:30)
[2022-03-06] MEDS ORDERED: POTASSIUM CHLORIDE IVPB SCH (11:30)
[2022-03-06] MEDS ORDERED: MAGNESIUM SULFATE IVPB SCH (11:30)
[2022-03-06 13:40] VITALS: BP 132/84; TEMP 97.7
== END 2022-03-06 15:25 | disposition home or self-care (01) ==
LOC: ONC/OP 07:45
PROVIDERS: ATTEND Internal Medicine Hematology & Oncology
PROC: 30233N1 Transfusion of Nonautologous Red Blood Cells into Peripheral Vein, Percutaneous Approach (ICD-10-PCS; principal; 2022-03-06)
DX: D64.9 Anemia, unspecified (principal); D69.6 Thrombocytopenia, unspecified; Z88.6 Allergy status to analgesic agent; Z91.048 Other nonmedicinal substance allergy status
CPT/HCPCS: 36430; 86850; 86900; 86901; 96365; 96366; J1642; J3475; J3480; J7050; P9016

== ENCOUNTER 2022-05-22 08:45 | Outpatient (CLI) | payer OTHER | END 2022-05-22 08:46 | disposition home or self-care (01) | LOC: PET 08:45 | PROVIDERS: ATTEND Internal Medicine Hematology & Oncology | DX: C34.12 Malignant neoplasm of upper lobe, left bronchus or lung (principal); E83.52 Hypercalcemia; R94.8 Abnormal results of function studies of other organs and systems | CPT/HCPCS: 78815; A9552 ==

== ENCOUNTER 2023-06-21 05:35 | Day surgery (SDC) | payer OTHER ==
[2023-06-18 09:58] VITALS: BMI 35.4
[2023-06-21] MEDS ORDERED: EPINEPHrine 1 MG/ML AMP ONE (06:39)
[2023-06-21] MEDS ORDERED: Dexamethasone 4 mg/ml Vial ONE (06:39)
[2023-06-21] MEDS ORDERED: Bupivacaine PF 0.5% 30 ML VIAL ONE (06:39)
[2023-06-21] MEDS ORDERED: Lidocaine 1% (PF) 30 ML VIAL ONE (06:39)
[2023-06-21] MEDS ORDERED: Midazolam HCl 2 mg/2 ml Vial ONE ×3 (06:57→07:36)
[2023-06-21] MEDS ORDERED: fentaNYL 50 mcg/mL 1 mL Vial ONE (06:57)
[2023-06-21] MEDS ORDERED: PROPOFOL 200 MG/20 ML VIAL ONE (07:48)
== END 2023-06-21 08:47 | disposition home or self-care (01) ==
LOC: SDC 05:35
PROVIDERS: ATTEND Thoracic Surgery (Cardiothoracic Vascular Surgery)
PROC: 0JPT0WZ Removal of Totally Implantable Vascular Access Device from Trunk Subcutaneous Tissue and Fascia, Open Approach (ICD-10-PCS; principal; 2023-06-21)
DX: C34.12 Malignant neoplasm of upper lobe, left bronchus or lung (principal)
CPT/HCPCS: 93005; 93010; J0171; J1100; J2001; J2250; J2704; J3010; S0020

== ENCOUNTER 2024-05-17 14:30 | Emergency (ER) | payer OTHER ==
[2024-05-17 15:24] LABS: INR-International Normal Ratio 1.1; Prothrombin Time 14.2 sec (12.0-14.7)
[2024-05-17 15:25] LABS: PTT 29.3 sec (22.9-36.1)
[2024-05-17 15:27] LABS: ALT (SGPT) 46 U/L (8-55); AST (SGOT) 36 U/L (5-34); Albumin 3.4 g/dL (3.4-4.8); Alkaline Phosphatase 80 U/L (40-110); Anion Gap 14 mmol/L (10-20); BUN (Urea Nitrogen) 11 mg/dL (9.8-20.1); Bilirubin, Total 0.6 mg/dL (0.2-1.2); Calc. Creatinine Clearance 0 mL/min (70-130); Calcium 9.1 mg/dL (7.8-10.44); Carbon Dioxide 20 mmol/L (23-31); Chloride 108 mmol/L (98-107); Estimated GFR 71; Globulin 3.8 g/dL (2.4-3.5); Glucose 120 mg/dL (80-115); Potassium 3.2 mmol/L (3.5-5.1); Protein, Total 7.2 g/dL (5.8-8.1); Sodium 139 mmol/L (136-145)
[2024-05-17 15:50] LABS: Hematocrit 26.4 % (36.0-47.0); Hemoglobin 8.5 g/dL (12.0-16.0); Mean Corpuscular HGB CONC 32.2 g/dL (32.0-36.0); Mean Corpuscular Volume 96.4 fL (78.0-98.0); Platelet Count 25 10x3/uL (130-400); RBC Distribution Width 19.6 % (11.5-14.5); Red Blood Cell (RBC) Count 2.74 mill/uL (4.20-5.40)
[2024-05-17 16:10] LABS: Anisocytosis SLIGHT = 6-15 cells HPF (0-5); Band 1 % (5-11); Lymphocytes 53 % (21-51); Macrocytosis SLIGHT = 6-15 cells HPF (0-5); Metamyelocyte 1 % (0-0); Monocytes 7 % (0-10); Myelocyte 1 % (0-0); Neutrophil 32 % (42-75); Nucleated RBC (Manual Ct) 17 % (0); Ovalocytes SLIGHT = 2-5 cells HPF (0-1); Platelet Adequacy Comment Significant Decrease; Polychromasia SLIGHT = 2-3 cells HPF (0-2); Reactive Lymphocytes 1 % (0-10); Reflex for Review?? YES
== END 2024-05-17 17:18 | disposition home or self-care (01) ==
LOC: ERS 14:30
DX: D61.818 Other pancytopenia (principal); I10 Essential (primary) hypertension; Z79.899 Other long term (current) drug therapy
CPT/HCPCS: 36415; 80053; 85025; 85060; 85610; 85730; 99283

== ENCOUNTER 2024-06-30 13:19 | Inpatient (IN) | payer OTHER ==
[2024-06-30 14:28] LABS: Hematocrit 14.8 % (36.0-47.0); Hemoglobin 4.5 g/dL (12.0-16.0); Mean Corpuscular HGB CONC 30.4 g/dL (32.0-36.0); Mean Corpuscular Hemoglobin 32.8 pg (27.0-31.0); Mean Platelet Volume 11.8 fL (7.4-10.4); Platelet Count 23 10x3/uL (130-400); RBC Distribution Width 19.7 % (11.5-14.5); Red Blood Cell (RBC) Count 1.37 mill/uL (4.20-5.40)
[2024-06-30 14:36] LABS: INR-International Normal Ratio 1.3; Prothrombin Time 15.8 sec (12.0-14.7)
[2024-06-30 14:37] LABS: PTT 44.4 sec (22.9-36.1)
[2024-06-30 14:40] LABS: ALT (SGPT) 9 U/L (8-55); AST (SGOT) 17 U/L (5-34); Albumin 3.5 g/dL (3.4-4.8); Alkaline Phosphatase 79 U/L (40-110); Anion Gap 17 mmol/L (10-20); BUN (Urea Nitrogen) 11 mg/dL (9.8-20.1); Bilirubin, Total 0.9 mg/dL (0.2-1.2); Calc. Creatinine Clearance 0 mL/min (70-130); Calcium 8.7 mg/dL (7.8-10.44); Carbon Dioxide 19 mmol/L (23-31); Chloride 106 mmol/L (98-107); Estimated GFR 73; Globulin 4.3 g/dL (2.4-3.5); Glucose 97 mg/dL (80-115); Potassium 3.3 mmol/L (3.5-5.1); Protein, Total 7.8 g/dL (5.8-8.1); Sodium 139 mmol/L (136-145)
[2024-06-30 14:45] LABS: Troponin I Less than 0.010 ng/mL (< 0.028)
[2024-06-30 14:50] LABS: Anisocytosis SLIGHT = 6-15 cells HPF (0-5); Band 3 % (5-11); Elliptocytes SLIGHT = 2-5 cells HPF (0-1); Large Platelets 2.9 % (0-5); Lymphocytes 47 % (21-51); Macrocytosis SLIGHT = 6-15 cells HPF (0-5); Monocytes 9 % (0-10); Neutrophil 36 % (42-75); Nucleated RBC (Manual Ct) 7 % (0); Plasma Cells 1 % (0-0); Platelet Adequacy Comment Platelets Decreased; Poikilocytosis SLIGHT = 6-15 cells HPF (0-5); Polychromasia SLIGHT = 2-3 cells HPF (0-2); Reactive Lymphocytes 4 % (0-10); Schistocytes SLIGHT = 2-5 cells HPF (0-1); Smudge Cells 27.5 %
[2024-06-30] MEDS ORDERED: Potassium Chloride 20 MEQ TAB ONE (17:33)
[2024-06-30] MEDS ORDERED: Cefepime 2 GM VIAL ONE (17:33)
[2024-06-30] MEDS ORDERED: Sodium Chloride 0.9% 100 ML ONE (17:33)
[2024-06-30] MEDS ORDERED: Acetaminophen 325 MG TAB ONE (17:33)
[2024-06-30 17:56] LABS: Bacteria/HPF 4+ HPF (None Seen); Bilirubin Negative (Negative); Blood, Urine 1+ (Negative); CAUTI Indications for Culture Dysuria,urgency,freq; Clarity Turbid (Clear); Glucose, Urine (Dipstick) Normal (Negative); Ketone, Urine 80 mg/dL (Negative); Leukocyte 25 Leu/uL (Negative); Nitrite Negative (Negative); Protein, Urine (Dipstick) 50 mg/dL (Neg-Trace); Specific Gravity, Urine 1.013 (1.002-1.036); Urobilinogen Normal mg/dL (Less than 2); pH, Urine 5.5 (5.0-9.0)
[2024-06-30 18:17] LABS: Urine Culture Reflex Yes Yes
[2024-06-30] MEDS ORDERED: Ipratropium/Albuterol 3 ML NEB NEB PRN (18:30)
[2024-06-30] MEDS ORDERED: Calcium Carbonate 500 MG ChewTAB PO PRN (18:34)
[2024-06-30] MEDS ORDERED: Ondansetron PF 4 MG/2 ML Vial IVP PRN (18:34)
[2024-06-30] MEDS ORDERED: Ondansetron ODT 4 MG TAB PO PRN (18:34)
[2024-06-30] MEDS ORDERED: Senokot S 8.6-50 MG TAB PO PRN (18:34)
[2024-06-30] MEDS ORDERED: Acetaminophen 650 MG Suppository PR PRN (18:34)
[2024-06-30 19:28] VITALS: BMI 35.6
[2024-06-30] MEDS: Pantoprazole 40 MG VIAL IVP SCH (20:03)
[2024-06-30] MEDS: Acetaminophen 325 MG TAB PO PRN (20:43)
[2024-06-30] MEDS ORDERED: Ibuprofen 100 MG/5 ML UDCUP PO SCH (22:15)
[2024-07-01] MEDS: Cefepime 2 GM in Sodium Chloride 0.9% 100 ML IVPB SCH (03:12)
[2024-07-01] MEDS: Vancomycin (BATCH) 2.5 GM in Premix 1 BAG IVPB SCH (03:52)
[2024-07-01] MEDS: Acetaminophen 325 MG TAB PO SCH (04:31)
[2024-07-01] MEDS: Levothyroxine Sodium 50 MCG TAB PO SCH (05:47)
[2024-07-01] MEDS ORDERED: Cefepime 2 GM in Sodium Chloride 0.9% 100 ML IVPB SCH (06:00)
[2024-07-01 06:52] LABS: Hematocrit 21.1 % (36.0-47.0); Hemoglobin 7.2 g/dL (12.0-16.0); Mean Corpuscular HGB CONC 34.1 g/dL (32.0-36.0); Mean Corpuscular Hemoglobin 32.3 pg (27.0-31.0); Mean Corpuscular Volume 94.6 fL (78.0-98.0); Platelet Count 13 10x3/uL (130-400); RBC Distribution Width 17.4 % (11.5-14.5); Red Blood Cell (RBC) Count 2.23 mill/uL (4.20-5.40)
[2024-07-01 06:58] LABS: ALT (SGPT) 8 U/L (8-55); AST (SGOT) 19 U/L (5-34); Alkaline Phosphatase 64 U/L (40-110); Anion Gap 15 mmol/L (10-20); BUN (Urea Nitrogen) 11 mg/dL (9.8-20.1); Bilirubin, Total 1.4 mg/dL (0.2-1.2); Calc. Creatinine Clearance 120 mL/min (70-130); Calcium 8.1 mg/dL (7.8-10.44); Carbon Dioxide 18 mmol/L (23-31); Chloride 108 mmol/L (98-107); Estimated GFR 80; Globulin 3.5 g/dL (2.4-3.5); Glucose 137 mg/dL (80-115); Potassium 3.3 mmol/L (3.5-5.1); Protein, Total 6.5 g/dL (5.8-8.1); Sodium 138 mmol/L (136-145)
[2024-07-01 07:50] LABS: Band 1 % (5-11); Burr Cells MODERATE= 6-15 cells HPF (0-1); Lymphocytes 43 % (21-51); Macrocytosis SLIGHT = 6-15 cells HPF (0-5); Monocytes 9 % (0-10); Neutrophil 40 % (42-75); Nucleated RBC (Manual Ct) 6 % (0); Ovalocytes MODERATE= 6-15 cells HPF (0-1); Plasma Cells 5 % (0-0); Platelet Adequacy Comment Significant Decrease; Poikilocytosis SLIGHT = 6-15 cells HPF (0-5); Polychromasia MODERATE = 3-4 cells HPF (0-2); Reactive Lymphocytes 2 % (0-10)
[2024-07-01] MEDS: Potassium Chloride 20 MEQ TAB PO SCH (10:11)
[2024-07-01] MEDS: Pantoprazole DR 40 MG TAB PO SCH (10:11)
[2024-07-01] MEDS: Multivitamin W/ Minerals 1 TAB PO SCH (10:11)
[2024-07-01 11:37] VITALS: BMI 35.6
[2024-07-01] MEDS: Vancomycin (BATCH) 1.25 GM in Premix 1 BAG IVPB SCH (17:14)
[2024-07-02 04:57] LABS: ALT (SGPT) 12 U/L (8-55); AST (SGOT) 21 U/L (5-34); Alkaline Phosphatase 62 U/L (40-110); Anion Gap 15 mmol/L (10-20); BUN (Urea Nitrogen) 11 mg/dL (9.8-20.1); Bilirubin, Total 1.1 mg/dL (0.2-1.2); Calc. Creatinine Clearance 111 mL/min (70-130); Calcium 8.1 mg/dL (7.8-10.44); Carbon Dioxide 18 mmol/L (23-31); Chloride 108 mmol/L (98-107); Estimated GFR 73; Globulin 3.6 g/dL (2.4-3.5); Glucose 88 mg/dL (80-115); Potassium 3.5 mmol/L (3.5-5.1); Protein, Total 6.6 g/dL (5.8-8.1); Sodium 137 mmol/L (136-145)
[2024-07-02 04:58] LABS: Hematocrit 21.4 % (36.0-47.0); Hemoglobin 7.3 g/dL (12.0-16.0); Mean Corpuscular HGB CONC 34.1 g/dL (32.0-36.0); Mean Corpuscular Hemoglobin 32.2 pg (27.0-31.0); Mean Corpuscular Volume 94.3 fL (78.0-98.0); Mean Platelet Volume 11.8 fL (7.4-10.4); Platelet Count 26 10x3/uL (130-400); RBC Distribution Width 17.7 % (11.5-14.5); Red Blood Cell (RBC) Count 2.27 mill/uL (4.20-5.40)
[2024-07-02 05:04] LABS: Vancomycin, Random 19.2 ug/mL (See Comment)
[2024-07-02 05:45] LABS: Large Platelets 1.9 % (0-5); Lymphocytes 57 % (21-51); Monocytes 21 % (0-10); Neutrophil 17 % (42-75); Nucleated RBC (Manual Ct) 3 % (0); Platelet Adequacy Comment Platelets Decreased; Polychromasia SLIGHT = 2-3 cells HPF (0-2); Reactive Lymphocytes 4 % (0-10); Smudge Cells 19.8 %
[2024-07-02] MEDS ORDERED: Magnevist 469MG/ML 20 ML VIAL ONE (15:48)
[2024-07-02] MEDS: Vancomycin HCl 750 MG in Sodium Chloride 0.9% 250 ML 250 ML IVPB SCH (21:15)
[2024-07-03 05:55] LABS: Vancomycin, Random 18.5 ug/mL (See Comment)
[2024-07-03 05:59] LABS: ALT (SGPT) 14 U/L (8-55); AST (SGOT) 24 U/L (5-34); Albumin 2.8 g/dL (3.4-4.8); Alkaline Phosphatase 68 U/L (40-110); Anion Gap 13 mmol/L (10-20); BUN (Urea Nitrogen) 11 mg/dL (9.8-20.1); Calc. Creatinine Clearance 124 mL/min (70-130); Calcium 8.2 mg/dL (7.8-10.44); Carbon Dioxide 17 mmol/L (23-31); Chloride 112 mmol/L (98-107); Estimated GFR 83; Globulin 3.6 g/dL (2.4-3.5); Glucose 101 mg/dL (80-115); Potassium 3.6 mmol/L (3.5-5.1); Protein, Total 6.4 g/dL (5.8-8.1); Sodium 138 mmol/L (136-145)
[2024-07-03 06:15] LABS: #Basophils 0.04 10x3/uL (0.0-0.2); #Eosinophils Less than 0.03 10x3/uL (0.0-0.7); %Lymphocytes 80.8 % (21.0-51.0); %Monocytes 12.6 % (0.0-10.0); %Neutrophils 4.6 % (42.0-75.0); Mean Corpuscular HGB CONC 33.3 g/dL (32.0-36.0); Mean Corpuscular Hemoglobin 32.3 pg (27.0-31.0); Mean Corpuscular Volume 96.8 fL (78.0-98.0); Mean Platelet Volume 11.3 fL (7.4-10.4); Platelet Count 16 10x3/uL (130-400); RBC Distribution Width 18.1 % (11.5-14.5); Red Blood Cell (RBC) Count 2.17 mill/uL (4.20-5.40)
[2024-07-03] MEDS: Vancomycin 1 GM in Premix 1 BAG IVPB SCH (21:52)
[2024-07-04 00:42] LABS: Hematocrit 23.3 % (36.0-47.0); Hemoglobin 7.7 g/dL (12.0-16.0); Platelet Count 46 10x3/uL (130-400)
[2024-07-04 06:03] LABS: Hematocrit 21.7 % (36.0-47.0); Hemoglobin 7.4 g/dL (12.0-16.0); Mean Corpuscular HGB CONC 34.1 g/dL (32.0-36.0); Mean Corpuscular Volume 93.9 fL (78.0-98.0); Mean Platelet Volume 10.5 fL (7.4-10.4); Platelet Count 37 10x3/uL (130-400); RBC Distribution Width 17.3 % (11.5-14.5); Red Blood Cell (RBC) Count 2.31 mill/uL (4.20-5.40)
[2024-07-04 06:21] LABS: ALT (SGPT) 13 U/L (8-55); AST (SGOT) 21 U/L (5-34); Albumin 2.8 g/dL (3.4-4.8); Alkaline Phosphatase 71 U/L (40-110); Anion Gap 10 mmol/L (10-20); BUN (Urea Nitrogen) 12 mg/dL (9.8-20.1); Bilirubin, Total 0.6 mg/dL (0.2-1.2); Calc. Creatinine Clearance 129 mL/min (70-130); Calcium 8.1 mg/dL (7.8-10.44); Carbon Dioxide 20 mmol/L (23-31); Chloride 111 mmol/L (98-107); Estimated GFR 87; Globulin 3.3 g/dL (2.4-3.5); Glucose 100 mg/dL (80-115); Potassium 3.3 mmol/L (3.5-5.1); Protein, Total 6.1 g/dL (5.8-8.1); Sodium 138 mmol/L (136-145)
[2024-07-04 06:49] LABS: Lymphocytes 63 % (21-51); Monocytes 1 % (0-10); Neutrophil 6 % (42-75); Platelet Adequacy Comment Platelets Decreased; RBC Morphology Within Normal Limits; Reactive Lymphocytes 29 % (0-10); Smudge Cells 64.7 %
[2024-07-04 16:56] VITALS: BP 118/83; TEMP 98.3
== END 2024-07-04 16:56 | disposition home or self-care (01) | DRG 809 ==
LOC: ERS 13:19 → MSONC 17:40
PROVIDERS: ADMIT Internal Medicine; ATTEND Internal Medicine
PROC: 30233N1 Transfusion of Nonautologous Red Blood Cells into Peripheral Vein, Percutaneous Approach (ICD-10-PCS; principal; 2024-06-30)
PROC: 6A551Z2 Pheresis of Platelets, Multiple (ICD-10-PCS; 2024-07-01)
DX: D61.818 Other pancytopenia (principal); C34.92 Malignant neoplasm of unspecified part of left bronchus or lung; D70.9 Neutropenia, unspecified; D64.9 Anemia, unspecified; D69.6 Thrombocytopenia, unspecified; R50.81 Fever presenting with conditions classified elsewhere; Z88.8 Allergy status to other drugs, medicaments and biological substances; E78.00 Pure hypercholesterolemia, unspecified; Z90.49 Acquired absence of other specified parts of digestive tract; Z98.51 Tubal ligation status; F41.9 Anxiety disorder, unspecified; Z88.1 Allergy status to other antibiotic agents; E03.9 Hypothyroidism, unspecified; I10 Essential (primary) hypertension; Z98.890 Other specified postprocedural states; E87.6 Hypokalemia; Z51.5 Encounter for palliative care
CPT/HCPCS: 36415; 36430; 70553; 71045; 76376; 80053; 80202; 81001; 83880; 84484; 85025; 85610; 85730; 86850; 86900; 86901; 87040; 87086; 93005; J0692; J2470; J3370; J3370-JW; J7050; P9016; P9035

== ENCOUNTER 2024-07-14 13:03 | Inpatient (IN) | payer OTHER ==
[2024-07-14 13:46] LABS: Hematocrit 18.7 % (36.0-47.0); Hemoglobin 6.4 g/dL (12.0-16.0); Mean Corpuscular HGB CONC 34.2 g/dL (32.0-36.0); Mean Corpuscular Hemoglobin 31.8 pg (27.0-31.0); Mean Platelet Volume 13.7 fL (7.4-10.4); Platelet Count 13 10x3/uL (130-400); RBC Distribution Width 14.8 % (11.5-14.5); Red Blood Cell (RBC) Count 2.01 mill/uL (4.20-5.40)
[2024-07-14 13:57] LABS: ALT (SGPT) 13 U/L (8-55); AST (SGOT) 22 U/L (5-34); Albumin 3.3 g/dL (3.4-4.8); Alkaline Phosphatase 78 U/L (40-110); Anion Gap 14 mmol/L (10-20); BUN (Urea Nitrogen) 12 mg/dL (9.8-20.1); Bilirubin, Total 0.6 mg/dL (0.2-1.2); Calc. Creatinine Clearance 0 mL/min (70-130); Calcium 8.8 mg/dL (7.8-10.44); Carbon Dioxide 24 mmol/L (23-31); Chloride 104 mmol/L (98-107); Estimated GFR 76; Globulin 4.3 g/dL (2.4-3.5); Glucose 105 mg/dL (80-115); Potassium 3.9 mmol/L (3.5-5.1); Protein, Total 7.6 g/dL (5.8-8.1); Sodium 138 mmol/L (136-145)
[2024-07-14 14:07] LABS: Anisocytosis SLIGHT = 6-15 cells HPF (0-5); Eosinophils 1 % (0-10); Lymphocytes 87 % (21-51); Microcytosis SLIGHT = 6-15 cells HPF (0-5); Monocytes 3 % (0-10); Neutrophil 9 % (42-75); Platelet Adequacy Comment Platelets Decreased; Smudge Cells 20.2 %; Tear Drops SLIGHT = 2-5 cells HPF (0-1)
[2024-07-14] MEDS ORDERED: Acetaminophen 325 MG (10.15 ML) UDCUP PO PRN (16:09)
[2024-07-14 17:30] VITALS: BMI 32.6
[2024-07-15] MEDS: Levothyroxine Sodium 50 MCG TAB PO SCH (05:34)
[2024-07-15 05:51] LABS: Hematocrit 23.9 % (36.0-47.0); Hemoglobin 8.1 g/dL (12.0-16.0); Mean Corpuscular HGB CONC 33.9 g/dL (32.0-36.0); Mean Corpuscular Hemoglobin 29.1 pg (27.0-31.0); Platelet Count 16 10x3/uL (130-400); RBC Distribution Width 19.5 % (11.5-14.5); Red Blood Cell (RBC) Count 2.78 mill/uL (4.20-5.40)
[2024-07-15 06:14] LABS: Anisocytosis SLIGHT = 6-15 cells HPF (0-5); Eosinophils 2 % (0-10); Lymphocytes 79 % (21-51); Monocytes 3 % (0-10); Neutrophil 15 % (42-75); Platelet Adequacy Comment Significant Decrease; Reactive Lymphocytes 1 % (0-10)
[2024-07-15 06:24] LABS: Anion Gap 13 mmol/L (10-20); BUN (Urea Nitrogen) 12 mg/dL (9.8-20.1); Calc. Creatinine Clearance 119 mL/min (70-130); Calcium 8.6 mg/dL (7.8-10.44); Carbon Dioxide 22 mmol/L (23-31); Chloride 109 mmol/L (98-107); Estimated GFR 85; Glucose 97 mg/dL (80-115); Potassium 3.2 mmol/L (3.5-5.1); Sodium 141 mmol/L (136-145)
[2024-07-15] MEDS: MULTIVIT/IRON SULF/FOLIC ACID 1 EACH TAB PO SCH (08:39)
[2024-07-15] MEDS: Amlodipine 10 MG TAB PO SCH (08:39)
[2024-07-15] MEDS: Potassium Chloride 20 MEQ TAB PO SCH (10:42)
[2024-07-15 11:50] VITALS: BP 120/78; TEMP 98.9
== END 2024-07-15 15:50 | disposition home or self-care (01) | DRG 809 ==
LOC: ERS 13:03 → MSONC 16:46
PROVIDERS: ADMIT Family Medicine; ATTEND Internal Medicine
PROC: 30233N1 Transfusion of Nonautologous Red Blood Cells into Peripheral Vein, Percutaneous Approach (ICD-10-PCS; principal; 2024-07-14)
DX: D61.818 Other pancytopenia (principal); C34.90 Malignant neoplasm of unspecified part of unspecified bronchus or lung; I10 Essential (primary) hypertension; E78.00 Pure hypercholesterolemia, unspecified; Z90.49 Acquired absence of other specified parts of digestive tract; Z98.51 Tubal ligation status; F41.9 Anxiety disorder, unspecified; E03.9 Hypothyroidism, unspecified; G62.9 Polyneuropathy, unspecified; Z88.1 Allergy status to other antibiotic agents; Z88.8 Allergy status to other drugs, medicaments and biological substances; Z79.899 Other long term (current) drug therapy
CPT/HCPCS: 36415; 36430; 80048; 80053; 82274; 85025; 86850; 86900; 86901; 99285; P9016

== ENCOUNTER 2024-08-04 12:30 | Day surgery (SDC) | payer OTHER ==
[2024-08-04] MEDS ORDERED: diphenhydrAMINE 25 MG CAP ONE (13:34)
[2024-08-04] MEDS ORDERED: Acetaminophen 500 MG TAB ONE (13:34)
[2024-08-04] MEDS: Acetaminophen 500 MG TAB PO SCH (13:35)
[2024-08-04] MEDS: diphenhydrAMINE 25 MG CAP PO SCH (13:35)
[2024-08-04 16:01] VITALS: BP 137/80; TEMP 97.6
== END 2024-08-04 16:04 | disposition home or self-care (01) ==
LOC: ONC/OP 12:30
PROVIDERS: ATTEND Internal Medicine Hematology & Oncology
DX: D64.9 Anemia, unspecified (principal); D69.6 Thrombocytopenia, unspecified
CPT/HCPCS: 36430; 86850; 86900; 86901; 86920; P9016

== ENCOUNTER 2024-08-14 10:27 | Day surgery (SDC) | payer OTHER ==
[~2024-08-14 10:27] MED LIST changes: -ISOVUE-370 76%-LOCM 1 ML ONE; +diphenhydrAMINE 25 MG CAP PO SCH
[2024-08-14] MEDS: Acetaminophen 500 MG TAB PO SCH (11:26)
[2024-08-14] MEDS ORDERED: Acetaminophen 500 MG TAB ONE (11:26)
[2024-08-14 14:49] VITALS: BP 141/74; TEMP 98.3
== END 2024-08-14 15:01 | disposition home or self-care (01) ==
LOC: ONC/OP 10:27
PROVIDERS: ATTEND Nurse Practitioner Family
DX: D64.9 Anemia, unspecified (principal); D69.6 Thrombocytopenia, unspecified
CPT/HCPCS: 36430; 86850; 86900; 86901; 86920; P9016

== ENCOUNTER 2024-09-20 12:35 | Day surgery (SDC) | payer OTHER ==
[2024-09-20] MEDS ORDERED: diphenhydrAMINE 25 MG CAP ONE (13:29)
[2024-09-20] MEDS ORDERED: Acetaminophen 500 MG TAB ONE (13:29)
[2024-09-20] MEDS: diphenhydrAMINE 25 MG CAP PO SCH (13:30)
[2024-09-20] MEDS: Acetaminophen 500 MG TAB PO SCH (13:30)
[2024-09-20 18:19] VITALS: BP 125/76; TEMP 98.7
== END 2024-09-20 18:20 | disposition home or self-care (01) ==
LOC: ONC/OP 12:35
PROVIDERS: ATTEND Internal Medicine Hematology & Oncology
DX: D64.9 Anemia, unspecified (principal); D69.6 Thrombocytopenia, unspecified
CPT/HCPCS: 36430; 86850; 86900; 86901; 86920; P9016

== ENCOUNTER 2024-10-26 10:26 | Day surgery (SDC) | payer OTHER ==
[2024-10-26] MEDS ORDERED: diphenhydrAMINE 25 MG CAP ONE (11:16)
[2024-10-26] MEDS ORDERED: Acetaminophen 500 MG TAB ONE (11:16)
[2024-10-26] MEDS: diphenhydrAMINE 25 MG CAP PO SCH (11:18)
[2024-10-26] MEDS: Acetaminophen 500 MG TAB PO SCH (11:18)
[2024-10-26 12:52] VITALS: BP 100/62; TEMP 97.7
== END 2024-10-26 13:10 | disposition home or self-care (01) ==
LOC: ONC/OP 10:26
PROVIDERS: ATTEND Internal Medicine Hematology & Oncology
DX: D64.9 Anemia, unspecified (principal); D69.6 Thrombocytopenia, unspecified; D70.9 Neutropenia, unspecified
CPT/HCPCS: 36430; 86850; 86900; 86901; 86920; P9035; 80053; 83735

== ENCOUNTER 2024-11-03 16:11 | Emergency (ER) | payer OTHER | END 2024-11-03 17:29 | disposition left against medical advice (07) | LOC: ERS 16:11 | DX: Z53.21 Procedure and treatment not carried out due to patient leaving prior to being seen by health care provider (principal) ==